=== PATIENT | female | born 1990 | race Two or more races ===

== ENCOUNTER 2019-01-09 07:16 | Day surgery (SDC) | payer OTHER ==
[2019-01-09] MEDS ORDERED: ZOFRAN4 MG/5 ML PO (11:04)
[2019-01-09] MEDS ORDERED: MOTRIN IB200 MG PO (11:04)
[2019-01-09] MEDS ORDERED: PERCOCET 5-3251 EACH PO (11:04)
[2019-01-09] MEDS ORDERED: PROTONIX40 MG PO (11:04)
== END 2019-01-09 13:30 | disposition home or self-care (01) ==
LOC: CIR.AMB 07:16
DX: Z30.2 Encounter for sterilization (principal)